=== PATIENT | male | born 1955 | race Caucasian/White ===

== ENCOUNTER 2016-12-19 10:31 | Inpatient (IN) | payer OTHER ==
[2016-12-19] MEDS ORDERED: TYLENOL PO PRN (13:05)
[2016-12-19] MEDS ORDERED: ZOFRAN IV PRN (13:05)
[2016-12-19 13:59] LABS: BASO% 0.5 % (0.0-0.8); EOS# 0.35 X1000 (0.0-0.7); EOS% 5.6 % (0.0-10.0); HEMATOCRIT 41.7 % (42.0-52.0); HEMOGLOBIN 13.6 g/dL (14.0-18.0); LYMPH# 1.98 X1000 (1.2-3.4); LYMPH% 31.8 % (20.5-51.1); MANUAL DIFF NEEDED? NO; MCH 29.6 PG (27-31); MCHC 32.6 g/dL (33-37); MCV 90.8 FL (81-99); MONO# 0.62 X1000 (0.11-0.59); MPV 10.2 FL (7.4-10.4); NEUT% 52.1 % (42.2-75.2); PLT 219 X1000 (130-400); RBC 4.59 XMIL (4.7-6.1)
[2016-12-19] MEDS: DUONEB (A & A) INH SCH ×2 (14:46→22:15)
[2016-12-19 14:51] LABS: AGAP 13; ALBUMIN 3.7 g/dL (3.5-5.0); ALKALINE PHOSPHATASE 50 U/L (32-122); BUN 5 mg/dL (8-22); CALCIUM 9.2 mg/dL (8.8-10.2); CHLORIDE 102 mmol/L (98-107); COSMO 277; GOT 18 U/L (10-34); GPT 12 U/L (10-44); MAGNESIUM 1.8 mg/dL (1.5-2.7); POTASSIUM 4.1 mmol/L (3.5-5.1); SODIUM 140 mmol/L (136-145); TCO2 25 mmol/L (25-35); TOTAL BILIRUBIN 0.54 mg/dL (0.20-1.00); TOTAL PROTEIN 6.6 g/dL (6.3-8.3)
[2016-12-19 15:21] LABS: INR 1.06; PROTIME 11.2 Seconds (9.2-11.7); PTT 26.9 Seconds (22.0-36.0)
--- NOTE | 2016-12-19 16:52 | Diag Imaging Result Document ---
PROCEDURE NAME: CT THORAX W/CONTRAST - 12/19/2016 CT CHEST WITH INTRAVENOUS CONTRAST. TECHNIQUE: Dose reduction protocol. COMPARISON: No comparison films. FINDINGS: There is a moderate sized right-sided pleural effusion measuring 3.5 cm posteriorly and inferiorly in the midline. No left-sided effusion. No cardiomegaly. No thoracic aortic aneurysm or dissection. Normal opacification of the pulmonary arteries and their proximal branches. There are several calcified mediastinal and hilar lymph nodes. There are also several small noncalcified mediastinal nodes. There is an irregular-shaped hypodense mass in the right upper lobe measuring 3.4 cm. The patient has emphysema. There is atelectasis to the right lower lobe. Limited images through the upper abdomen reveal a tiny stone within the gallbladder or common bile duct. No bile duct dilatation. IMPRESSION: 1. Right upper lobe mass with a moderate right-sided effusion and basilar atelectasis. 2. Emphysema. 3. There is evidence of a prior granulomatous infection with scattered granulomata and calcified lymph nodes. 4. I believe there is a single small stone within the gallbladder.
[2016-12-19] MEDS: NS 1,000 ML IV SCH (17:32)
[2016-12-19] MEDS: NORCO-7.5 PO PRN (17:33)
[2016-12-19] MEDS: ACCOLATE PO SCH (17:33)
--- NOTE | 2016-12-19 17:33 | HISTORY AND PHYSICAL ---
This is a 61-year-old well known to me who presented with a persistent right upper quadrant pain which was intensifying. He has a history of: 1. Asthma. 2. Osteoarthritis. 3. 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 4. Hypercholesterolemia. 5. Benign prostatic hypertrophy. 6. Hypercholesterolemia. 7. Osteoarthritis. FAMILY HISTORY: Noncontributory. SOCIAL HISTORY: No longer smokes. Negative for alcohol. FAMILY HISTORY: Sister recently diagnosed with lung cancer and has been fairly recent. REVIEW OF SYSTEMS: General: No weight gain or loss. No fever or chills. Just right upper quadrant pain. This seems to be persistent. No exacerbating or alleviating factors. Breathing is better. No wheezing. No coughing at this time. GI/: No complaints of change in bowels, gross hematuria, dysuria. Musculoskeletal/Neurologic: No focal complaints. Immunologic/Hematologic: No significant history. PHYSICAL EXAM: Today afebrile, temp 97.9 degrees, pulse 92, respirations 18, blood pressure 137/85. HEENT: Pupils are equal, round. LUNGS: Clear in all lung chavez. CARDIOVASCULAR: Regular rhythm and rate without murmur or S3. ABDOMEN: Soft. SKIN: Warm and dry. Weight 170 pounds. 6220 white blood cells. His hematocrit 41, platelet count 219,000. Sodium 140, potassium 4.1, chloride 102, bicarb 25, BUN 5, creatinine 0.7, blood sugar 98, albumin 3.7. Pro time was 11.2 and INR 1.06, PTT was 26. ASSESSMENT AND PLAN: 1. Right upper quadrant pain. He has had a chest x-ray fairly recently that there is increased density in the focal opacity in the right upper lung zone seen on previous study. Correlation with CT so we are going to get a CT of his chest and trying to get cuts down to the adrenals. I do not see clinical signs that would suggest infection so concerned about possible neoplasm. 2. Interval development of small to moderate right-sided pleural effusion was also noted. 3. History of asthma. 4. History of osteoarthritis status post bilateral hip replacement for avascular necrosis of both hips. Review of lab, I do not see any other concerns at this point.
[2016-12-19 17:46] LABS: URINE CULTURE NEEDED? NO; URINE MICRO REVIEW NEEDED? NO; URINE SOURCE CLEAN CATCH
[2016-12-19 18:00] LABS: BILIRUBIN URINE NEGATIVE (NEGATIVE); BLOOD URINE NEGATIVE (NEGATIVE); COLOR YELLOW; GLUCOSE URINE NEGATIVE (NEGATIVE); LEUKOCYTES URINE NEGATIVE (NEGATIVE); NITRITE URINE NEGATIVE (NEGATIVE); PH URINE 7.5; PROTEIN URINE NEGATIVE (NEGATIVE); SP GRAVITY URINE 1.026; TURBIDITY URINE HAZY (CLEAR); UROBILINOGEN URINE NORMAL (NORMAL)
[2016-12-19 18:27] LABS: UR EPITHELIAL CELLS <10 /HPF (<10); URINE BACTERIA NEGATIVE /HPF; URINE RBC <10 /HPF (<10); URINE WBC <10 /HPF (<10)
[2016-12-19] MEDS: FLOMAX PO SCH (21:50)
[2016-12-19] MEDS: PREDNISONE PO SCH (21:50)
[2016-12-19] MEDS: TRAVATAN 0.004% OPH SOLN BOTH EYES SCH (21:50)
[2016-12-20] MEDS: PRILOSEC PO SCH ×2 (05:32→07:45)
[2016-12-20] MEDS: NORCO-7.5 PO PRN ×4 (05:32→21:44)
[2016-12-20] MEDS: NS 1,000 ML IV SCH ×3 (05:33→21:32)
--- NOTE | 2016-12-20 07:29 | EKG Report ---
Test Performed on : 12/20/2016 05:46:33 AM Test Reason : chest pain Blood Pressure : / mmHG Vent. Rate : 106 BPM Atrial Rate : 106 BPM P-R Int : 170 ms QRS Dur : 132 ms QT Int : 368 ms P-R-T Axes : 032 -55 002 degrees QTc Int : 488 ms Sinus tachycardia. Left axis deviation Right bundle branch block Possible Lateral infarct , age undetermined Inferior infarct , age undetermined Abnormal ECG When compared with ECG of 30-MAR-2016 21:20, Vent. rate has increased BY 43 BPM Right bundle branch block is now present Borderline criteria for Lateral infarct are now present Inferior infarct is now present Confirmed by Madi Quinteros MD ([id number]) on 12/21/2016 10:15:05 PM
[2016-12-20] MEDS: PREDNISONE PO SCH (08:45)
[2016-12-20] MEDS ORDERED: ASPIRIN PO SCH (09:00)
[2016-12-20] MEDS: ADVAIR 250/50 DISKUS INH SCH ×2 (09:06→19:51)
[2016-12-20] MEDS: DUONEB (A & A) INH SCH ×3 (09:06→19:51)
--- NOTE | 2016-12-20 10:48 | PROGRESS NOTE ---
DATE: 12/20/2016 SUBJECTIVE: He is complaining of right-sided pain. CT scan showed a mass in the right lung. Will get Dr. Garcia to evaluate, but appears to have right upper lobe mass with moderate right- sided effusion, bibasilar atelectasis, of course underlying emphysema. He has a long history of asthma. He is comfortable at the present time, not hurting, breathing comfortably. OBJECTIVE: Vital Signs: Temperature 98.1 degrees, pulse 100, respirations 18, blood pressure 118/64. Lungs: Clear in all lung chavez. Cardiovascular: Regular rhythm and rate, without murmur or S3. Abdomen: Soft. Skin: Warm and dry. LABORATORY DATA: White count 6220, hematocrit 41, platelet count 219,000. Sodium 140, potassium 4.1, chloride 102, bicarb 25, BUN 5, creatinine 0.7. Liver functions unremarkable. Pro-time 11.2, PTT 26. Urinalysis unremarkable. ASSESSMENT AND PLAN: 1. Right upper lobe mass. Will ask Dr. Garcia to help evaluate. Concerned about neoplasm. 2. Asthma. Airway, gas and air exchange appear to be good at the present time.
--- NOTE | 2016-12-20 13:29 | Diag Imaging Result Document ---
PROCEDURE NAME: CHEST-2 VIEWS - 12/20/2016 FRONTAL RADIOGRAPH OF THE CHEST WITH INSPIRATION AND EXPIRATION 2 VIEWS: COMPARISON: 12/18/2016. FINDINGS: There is no evidence of pneumothorax status post right thoracentesis. The small right pleural effusion has decreased status post thoracentesis. Very little residual pleural fluid remains. There is mild residual atelectasis at the right lung base. The known right upper lobe lung mass is again identified and appears stable. Cardiac silhouette is stable. IMPRESSION: No evidence of pneumothorax status post right thoracentesis.
--- NOTE | 2016-12-20 13:57 | CONSULTATION ---
DATE OF CONSULTATION: 12/20/2016 CONSULTATION DATE: 12/20/2016. REQUESTING PHYSICIAN: Dr. Kimo Morales. REASON FOR CONSULTATION: Lung mass. HISTORY OF PRESENT ILLNESS: Mr. Carolina is a 61-year-old, white male, with a 24 to 36 pack year history for tobacco (non-smoker since 1979), who developed right-sided pain approximately 3 months ago. The pain increases with deep breath, hiccups, and cough. The pain was not relieved with muscle relaxers or narcotics. The patient was evaluated by Dr. Morales yesterday for an increasing pain. A chest x-ray revealed density in the right upper lobe and a CT scan of the thorax was performed, which reveals a 3.4 cm mass in the right upper lobe with a 3.5 cm pleural effusion. Significant emphysematous changes were also seen. PAST MEDICAL HISTORY: Includes: 1. Diagnosis of asthma with frequent steroid use. 2. Status post avascular necrosis of both hips, requiring replacement. 3. Status post bilateral . 4. Benign prostatic hyperplasia. 5. Dyslipidemia. 6. Osteoarthritis. SOCIAL HISTORY: No alcohol use. Prior tobacco use as per History of Present Illness. FAMILY HISTORY: Positive for: 1. Lung cancer in several members of his family. 2. Colorectal cancer. REVIEW OF SYSTEMS: Notable for: 1. Increasing right-sided chest pain. 2. 8-10 pound weight loss. PHYSICAL EXAMINATION: General: Reveals a well-developed, well-nourished, white male, resting comfortably. Psych: In no distress. Vitals: Blood pressure 116/64, heart rate 101, respiratory rate 18 and unlabored, oxygen saturation 96%. HEENT: Pupils equal and reactive. Oropharynx is clear. Neck: Supple. Chest: Reveals diminished breath sounds right base. Cardiac Exam: Regular rate. Normal S1, normal S2. Abdomen: Soft without hepatosplenomegaly. Extremities: Without edema. LABORATORIES: CT scan of the thorax as per History of Present Illness. IMPRESSION: A 61-year-old with a prior tobacco use, strong family history for lung cancer, with right upper lobe mass, pleurisy/chest wall pain, and moderate right-sided pleural effusion. The mass is worrisome for malignancy. The pleural effusion, along with pleuritic pain, is also worrisome for a malignant effusion. The case was discussed with Radiology. Thoracentesis will be the initial test. If he has a malignant effusion, that will stage his disease as inoperable. If the pleural fluid is negative, then CT guided biopsy of the right upper lobe mass will be performed. RECOMMENDATIONS: 1. Ultrasound-guided thoracentesis. This has been discussed with Radiology. 2. CT-guided biopsy of the right upper lobe mass if the pleural effusion is negative for a malignancy. 3. Check a CEA level. 4. Check pulmonary function studies to evaluate the degree of obstruction. Additional recommendations pending the hospital course.
[2016-12-20 14:28] LABS: SPECIMEN PLEURAL FLUID
--- NOTE | 2016-12-20 14:30 | Diag Imaging Result Document ---
PROCEDURE NAME: THORACENTESIS W/IMAGE GUIDANCE - 12/20/2016 ULTRASOUND-GUIDED RIGHT THORACENTESIS: COMPARISON: None available. FINDINGS: Risks, benefits, and alternatives were discussed with the patient, and informed consent was obtained. The patient was prepped and draped in sterile fashion and local anesthesia was achieved with 1% lidocaine solution. Using ultrasound guidance, a large-bore catheter was inserted into the right pleural fluid collection and approximately 300 mL of red tinged serosanguineous fluid was aspirated and sent for laboratory analysis. There were no known complications. A chest radiograph is to follow. IMPRESSION: Technically successful ultrasound-guided right thoracentesis.
[2016-12-20 14:32] LABS: TOTAL PROT BODY FLUID 4.4 g/dL
[2016-12-20 14:41] LABS: DIFF NEEDED? YES; WBC BF 4234 /cumm
[2016-12-20 15:05] LABS: MONOS 33 %; POLYS 67 %
[2016-12-20] MEDS: ACCOLATE PO SCH (15:58)
[2016-12-20] MEDS: TRAVATAN 0.004% OPH SOLN BOTH EYES SCH (21:32)
[2016-12-20] MEDS: FLOMAX PO SCH (21:33)
[2016-12-21] MEDS: NS 1,000 ML IV SCH ×4 (02:47→22:05)
[2016-12-21] MEDS: DUONEB (A & A) INH SCH ×5 (03:27→19:57)
[2016-12-21] MEDS: ACCOLATE PO SCH ×2 (06:29→14:57)
[2016-12-21] MEDS: PRILOSEC PO SCH (06:29)
[2016-12-21] MEDS: NORCO-7.5 PO PRN ×3 (06:31→19:24)
--- NOTE | 2016-12-21 09:11 | PROGRESS NOTE ---
DATE: 12/21/2016 SUBJECTIVE: He was eating breakfast. He states that he could tell a difference in his breathing after they performed the pleurocentesis. I looked at the pleural fluid. I do not see any definitive results. I suspect that we will have to pursue a CT-guided needle biopsy. He understands. PHYSICAL EXAMINATION: Vital Signs: Today, temperature 97.5 degrees, pulse 80, respirations 16, blood pressure 119/63. HEENT: Pupils are equal, round. CVP less than 6 cm. Lungs: Clear in all lung chavez. Cardiovascular Examination: Regular rhythm and rate without murmur or S3. Abdomen: Soft. Skin: Warm and dry. Is and Os: Urine output was 2200 mL. LAB: Reviewed from . Chemistries unremarkable. ASSESSMENT AND PLAN: 1. A 61-year-old with prior tobacco use, strong family history for lung cancer, with right upper lobe mass, pleurisy, chest wall pain, and status post pleurocentesis. Pursue a CT needle biopsy. The mass is worrisome for malignancy. He understands. 2. History of asthma. 3. Nutritional status, good. 4. Reviewed orders. I do not see any changes at this time.
[2016-12-21] MEDS: PREDNISONE PO SCH (09:30)
[2016-12-21] MEDS: ADVAIR 250/50 DISKUS INH SCH ×2 (10:00→19:57)
[2016-12-21] MEDS: TRAVATAN 0.004% OPH SOLN BOTH EYES SCH (20:55)
[2016-12-21] MEDS: FLOMAX PO SCH (20:55)
[2016-12-22] MEDS: DUONEB (A & A) INH SCH ×3 (03:10→15:58)
[2016-12-22] MEDS: PRILOSEC PO SCH ×2 (05:44→06:29)
[2016-12-22] MEDS: ACCOLATE PO SCH ×3 (05:44→15:01)
[2016-12-22] MEDS: NORCO-7.5 PO PRN (05:55)
[2016-12-22] MEDS: NS 1,000 ML IV SCH ×2 (06:28→09:46)
[2016-12-22] MEDS: PREDNISONE PO SCH (08:34)
[2016-12-22] MEDS: ADVAIR 250/50 DISKUS INH SCH (09:11)
--- NOTE | 2016-12-22 11:31 | PROGRESS NOTE ---
DATE: 12/22/2016 SUBJECTIVE: Mr. Carolina says he got some sleep last night, breathing better. We do not have the results back from the pleurocentesis. I suspect that he will need a CT biopsy which will probably happen on Sunday. OBJECTIVE: He remains afebrile. Temperature 97.5 degrees, pulse is 66, respirations 15. Lungs are clear in all lung chavez. Cardiovascular: Regular rhythm and rate without murmur or S3. Abdomen: Soft. Skin is warm and dry. LABORATORY DATA: White count 6220, hematocrit 41, platelet count 219,000. Sodium 140, potassium 4.1, chloride 102, bicarb 25. BUN 5, creatinine 0.7. AST 18, ALT 12. Alkaline phos 50. ASSESSMENT AND PLAN: 1. Right lung mass. He will need a needle biopsy, suspect. Will await the results from the thoracentesis. It is possible that we could get some results from that and not need a CT biopsy. 2. History of asthma. Air exchange doing well. 3. Nutrition looks good.
[2016-12-22 13:39] VITALS: BP 128/57
--- NOTE | 2016-12-22 16:35 | CONSULTATION ---
DATE OF CONSULTATION: 12/22/2016 REASON FOR CONSULTATION: Patient has a right upper lobe mass with malignant effusion. HISTORY OF PRESENT ILLNESS: This patient, who has a 20 year remote history of smoking, quit smoking in approximately 1979, was having some ongoing and worsening dyspnea and right-sided chest pain. This was ongoing for the past month and just got unbearable. The patient came into the emergency room. A CT of the chest was ordered where an irregular-shaped hypodense mass in the right upper lobe measuring 3.4 cm was seen, as well as a moderate sized right- sided pleural effusion and basilar atelectasis was appreciated. The patient has had an ultrasound-guided right thoracentesis on December 20 with approximately 300 mL of fluid retrieved. There were malignant cells seen in the fluid. Cytology is currently pending. The patient does feel better since the thoracentesis. His CEA is 1.0. He has a quite a bit of family history of lung cancer, as well as colon cancer. He otherwise has no major health concerns other then asthma, BPH, hyperlipidemia and osteoarthritis. He denies any major weight loss or fever or chills. REVIEW OF SYSTEMS: Negative unless indicated in the HPI. PAST MEDICAL HISTORY: Asthma, BPH, hyperlipidemia and osteoarthritis. FAMILY/SOCIAL HISTORY: The patient has a family history of both colon and lung cancer in multiple siblings and father and maternal/paternal grandparents. He has a remote 20 year history of smoking. He quit smoking in 1979. Denies alcohol or illicit drug use. CURRENT MEDICATIONS: Inhalers and low-dose aspirin. PHYSICAL EXAMINATION: Vital Signs: Stable. Constitutional: This is a male in no acute distress. HEENT: Head is normocephalic, atraumatic. Pupils equal, round , symmetric. Mucous membranes are moist. Cardiovascular: S1, S2 audible to auscultation with no heaves, lifts, thrills or murmurs. Pulmonary: Diminished bilateral bases with normal respiratory effort. Abdomen: Soft, nontender, nondistended. Positive bowel sounds in all 4 quadrants. Skin: Warm, dry, and intact. No ecchymoses or petechiae. Musculoskeletal: Moves all extremities with no bony abnormality. Neurologic: Alert and oriented x3. Psychiatric: Appropriate to situation. DIAGNOSTIC DATA: CT chest as above. WBC 6.22, hemoglobin 13.6, hematocrit 41.7 , platelet count 219,000. Sodium 140, potassium 4.1, BUN 5, creatinine 0.7. ASSESSMENT AND PLAN: 1. Right upper lobe mass with malignant effusion status post thoracentesis on the . There are malignant cells seen. Preliminary cytology discussed with Dr. Henderson reveals cancer, final pending. He needs outpatient PET scan. Patient wants to go home. Ok from my standpoint. 2. Asthma. He continues on inhalers. 3. Pain is improved status post thoracentesis per primary team. 4. Gastrointestinal/deep vein thrombosis prophylaxis. He is to use sequential compression devices. Please call over the weekend if needed. Dictated by CARMINA Sandhu for Tarik Braxton MD MTDD
--- NOTE | 2016-12-23 14:28 | DISCHARGE SUMMARY ---
ADMISSION DATE: 12/19/2016 DISCHARGE DATE: 12/22/2016 Presented with some right upper quadrant pain. They found a little pleural effusion and a right pulmonary mass. PAST MEDICAL HISTORY: 1. Asthma. 2. Osteoarthritis. 3. Avascular necrosis of both hips requiring bilateral hip replacement. 4. Hypercholesterolemia. 5. Benign prostatic hypertrophy. 6. Hypercholesterolemia. 7. Osteoarthritis. The patient was admitted. Chest x-ray fairly recent showed increased density and focal opacity in the right upper lung zone. Did a CT of his chest on 12/19/2016 which revealed right upper lobe mass, moderate right-sided effusion, bibasilar atelectasis, emphysema. There was evidence of prior granulomatous infection with scattered granulomata and calcified lymph nodes. Saw a single gallstone in the gallbladder. Thoracentesis was performed per Dr. Mahesh Tapia and technically successful ultrasound-guided right thoracentesis. 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 Further studies pending. Patient did feel better. Breathing a little better and felt he could go home on 12/22/2016. We will discharge him home on his home medications and will let him have something for pain if he needs it. So continue his albuterol ipratropium inhalers as needed nebulized, aspirin 81 mg a day, fluticasone salmeterol 250/50 one b.i.d., ipratropium albuterol inhaler or Respimat 1 puff q.6 hours, Flomax 0.4 mg a day, travoprost 0.04% ophthalmic solution, 1 drop at bedtime, zafirlukast which is Accolate 20 mg b.i.d. which he has been on for a while. We will let him have some [place] if he needs it for pain. Follow up with my office in a couple weeks. Follow up with Dr. Braxton in a couple of weeks as well.
== END 2016-12-22 18:16 | disposition home or self-care (01) | DRG 181 ==
LOC: DIRADM 10:31 → 4N 12:57
PROVIDERS: ADMIT Emergency Medicine; ATTEND Emergency Medicine
PROC: 0W993ZX Drainage of Right Pleural Cavity, Percutaneous Approach, Diagnostic (ICD-10-PCS; principal; 2016-12-21)
DX: C34.91 Malignant neoplasm of unspecified part of right bronchus or lung (principal); J91.0 Malignant pleural effusion; J45.909 Unspecified asthma, uncomplicated; M19.90 Unspecified osteoarthritis, unspecified site; Z96.643 Presence of artificial hip joint, bilateral; E78.00 Pure hypercholesterolemia, unspecified; N40.0 Benign prostatic hyperplasia without lower urinary tract symptoms; Z79.899 Other long term (current) drug therapy; Z87.891 Personal history of nicotine dependence; Z80.1 Family history of malignant neoplasm of trachea, bronchus and lung; Z80.0 Family history of malignant neoplasm of digestive organs; Z79.51 Long term (current) use of inhaled steroids
CPT/HCPCS: 32555; 71020; 71260; 80053; 81001; 82150; 82378; 82945; 83615; 83735; 83986; 84157; 85025; 85610; 85730; 87070; 87102; 87116; 87147; 87205; 87206; 89050; 89051; 93005; 93010; 94010; 94375; 94640; 94726; 94729; 94761; J7030; J7512; Q9967